=== PATIENT | female | born 1960 | race Caucasian/White ===

== ENCOUNTER 2017-06-21 15:38 | Inpatient (IN) ==
[2017-06-21 16:28] LABS: Basophils # 0.1 K/mcL (0.0-0.2); Basophils % 0.4 %; Eosinophils # 0.2 K/mcL (0.0-0.6); Eosinophils % 1.6 %; Hematocrit 45.6 % (35.3-44.9); Hemoglobin 15.1 g/dL (11.5-15.4); Immature Granulocytes % 0.4 % (0-4); Lymphocytes # 2.1 K/mcL (0.6-4.6); Lymphocytes % 18.8 %; Mean Corpuscular HGB Conc 33.1 g/dL (31.6-35.5); Mean Corpuscular Hemoglobin 29.8 pg (28.0-33.3); Mean Corpuscular Volume 90.1 fL (83.0-100.0); Mean Platelet Volume 9.6 fL (9.4-12.4); Monocytes # 0.7 K/mcL (0.0-1.3); Monocytes % 6.2 %; Neutrophils # 8.2 K/mcL (1.6-8.9); Platelet Count 260 K/mcL (140-400); Red Blood Count 5.06 M/mcL (3.82-4.97); Red Cell Distribution Width 13.3 % (11.5-14.5); Segmented Neutrophils % 72.6 %
[2017-06-21 16:41] LABS: Alanine Aminotransferase 11 Units/L (0-55); Albumin 3.4 g/dL (3.5-5.0); Albumin/Globulin Ratio 0.9 (1.1-2.2); Alkaline Phosphatase 89 Units/L (38-126); Amylase 115 Units/L (25-125); Aspartate Amino Transferase 15 Units/L (5-34); BUN/Creatinine Ratio 31 (6-26); Bilirubin,Direct 0.2 mg/dL (0.0-0.5); Bilirubin,Indirect 0.3 mg/dL (0.0-1.2); Bilirubin,Total 0.5 mg/dL (0.2-1.2); Blood Urea Nitrogen 25 mg/dL (7-20); Calcium 9.3 mg/dL (8.6-10.8); Carbon Dioxide 26 mEq/L (19-29); Chloride 107 mEq/L (98-109); Globulin 3.9 g/dL (2.4-3.5); Glucose 102 mg/dL (70-99); Lipase 13 Units/L (8-78); Osmolality,Calculated 293 (280-300); Potassium 4.4 mEq/L (3.5-4.5); Sodium 139 mEq/L (136-145); Total Protein 7.3 g/dL (6.0-8.3); eGFR For African Americans > 60 (> 60); eGFR For Non-African Americans > 60 (> 60)
[2017-06-21 18:24] LABS: Bilirubin,Urine Small (Negative); Blood,Urine Negative (Negative); Clarity,Urine Cloudy (Clear); Color,Urine Dark Yellow (Yellow); Glucose,Urine (UA) Normal (Normal); Ketones,Urine Negative (Negative); Leukocyte Esterase,Urine Moderate (Negative); Nitrite,Urine Positive (Negative); Protein,Urine Negative (Neg-Trace); Specific Gravity,Urine > 1.030 (1.010-1.025); Urobilinogen,Urine Normal (Normal)
[2017-06-21 18:26] LABS: Bacteria,Urine Many per hpf (None-Few); Hyaline Casts,Urine Few per lpf (None-Few); Squamous Epithelial Cell,Urine Many per lpf (None-Few); WBC,Urine 50-100 per hpf (0-3)
[2017-06-21] MEDS ORDERED: 0.9 % Sodium Chloride 1,000 ML IVC ONE (18:32)
[2017-06-21] MEDS ORDERED: Ondansetron 4 MG/2 ML VIAL IVP ONE (18:32)
[2017-06-21] MEDS ORDERED: *HR* Morphine 2 MG/ML SYRINGE IVP ONE (18:32)
[2017-06-21] MEDS ORDERED: Pantoprazole 40 MG VIAL IVP ONE (18:39)
--- NOTE | 2017-06-21 20:34 | Emergency Department Note ---
Disposition Clinical Impression: Colitis, Urinary tract infection Pancreatitis, chronic Qualifiers: Pancreatitis type: unspecified pancreatitis type Qualified Code(s): K86.1 - Other chronic pancreatitis Disposition: Admitted As Inpatient Condition: Fair Time of Disposition: 20:42 Abdominal Pain HPI - General Chief Complaint: ED Abdominal Pain Stated Complaint: ABD / back pain N/V Time Seen by Provider: 06/21/17 18:00 Source: patient - History of Present Illness HPI Narrative: Miss Ragland is a 57-year-old female with past medical history of chronic pancreatitis. She presents to the ED with a 2 day history of severe abdominal pain. She describes this pain as located in her left upper quadrant and radiating to her right upper quadrant and directly towards her back. She was recently hospitalized for a severe migraine. She was given Toradol. She went home after receiving a dose of Toradol and became nauseated which resulted in a few episodes of emesis. Yesterday she had severe diarrhea all throughout the day. Today she is in moderate to severe abdominal pain. She denies any hematochezia or melena. She denies any chest pain shortness of breath or headaches. She is not having any trouble urinating, she denies dysuria or hematuria. Pain Scale: 8 - Related Data Home Medications Medication Instructions Recorded Confirmed Dicyclomine [Bentyl] 40 mg PO QID 06/21/17 06/21/17 Duloxetine HCl [Cymbalta] 120 mg PO QAM 06/21/17 06/21/17 Gabapentin [Neurontin] 600 - 1,200 mg PO TID 06/21/17 06/21/17 Lipase/Protease/Amylase [Che Dr 4 each PO QID 06/21/17 06/21/17 24,000 Units Capsule] Meloxicam [Mobic] 7.5 mg PO DAILY 06/21/17 06/21/17 Promethazine [Phenergan] 25 mg PO Q8HR PRN 06/21/17 06/21/17 traZODone [TraZODone] 50 mg PO HS 06/21/17 06/21/17 Allergies Allergy/AdvReac Type Severity Reaction Status Date / Time No Known Allergies Allergy Verified 06/21/17 15:43 All systems ED: reviewed and negative except as stated. Review of Systems: As Per HPI Constitutional: Denies: fever, chills, weakness, weight change Cardiovascular: Denies: chest pain, palpitations, dyspnea on exertion, edema Respiratory: Denies: cough, dyspnea, wheezes, sputum production Gastrointestinal: Reports: abdominal pain, nausea, vomiting, diarrhea. Denies: hematemesis, melena, hematochezia Genitourinary: Denies: urgency, dysuria, hematuria Neurological: Denies: headache Abdominal Pain PMH - Past Medical History Medical history: Reports: other Reports: other (chronic pancreatitis) Female Surgical History: Reports: hysterectomy Psychiatric history: Reports: no psych history - Social History Smoking status: Current every day smoker Alcohol use: Reports: none Drug use: Reports: none Physical Exam - General Limitations: no limitations General appearance: alert, in no apparent distress - Head Head exam: atraumatic - Eye Eye exam: Present: normal appearance. Absent: scleral icterus - Respiratory Respiratory exam: Present: normal lung sounds bilaterally. Absent: respiratory distress, wheezes - Cardiovascular Cardiovascular exam: Present: regular rate, normal rhythm. Absent: systolic murmur, diastolic murmur, rubs, gallop - Abdominal Exam Abdominal exam: Present: soft. Absent: distention, guarding, rebound, rigidity Abdominal tenderness: Present: RUQ, LUQ, moderate - Back Exam Back exam: Present: CVA tenderness (L) - Neurological Exam Neurological exam: Present: alert, oriented X3 - Psychiatric Psychiatric exam: Present: normal affect, normal mood Course Course Narrative: Patient with past medical history of chronic pancreatitis presents with moderate severe abdominal pain. Patient has been sick with nausea vomiting and diarrhea the past 2 days. Will order basic labs and CT scan of the abdomen and pelvis. - Reevaluation(s) Reevaluation #1: Lipase is within normal limits as expected for acute on chronic pancreatitis CT scan shows evidence of mild colitis in the splenic flexure. Pancreas is atrophic with no evidence of acute inflammation. Patient's UTI indicates an asymptomatic pyuria. Reevaluation #2: Patient with intractable abdominal pain, acute on chronic pancreatitis versus colitis of the splenic flexure, and asymptomatic pyuria. Will admit to medicine. Vital Signs Temperature 98.0 F 06/21/17 15:40 Pulse Rate 120 06/21/17 15:40 Respiratory Rate 20 06/21/17 15:40 Blood Pressure 133/74 06/21/17 15:40 O2 Sat by Pulse Oximetry 93 06/21/17 15:40 Temperature 98.0 F 06/21/17 15:40 Pulse Rate 83 06/21/17 19:31 Respiratory Rate 18 06/21/17 19:31 Blood Pressure 126/71 06/21/17 19:31 O2 Sat by Pulse Oximetry 97 06/21/17 19:31 Oxygen Delivery Oxygen Delivery Room Air Abdominal Pain - Medical Records Medical records reviewed: Yes I reviewed the patient's medical records. - Lab Data Lab results reviewed: Yes I reviewed the patient's lab results. Result diagrams: 06/21/17 16:11 06/21/17 16:11 Lab Results 06/21/17 06/21/17 06/21/17 Range/Units 16:11 16:11 18:17 WBC 11.3 H (4.3-11.1) K/mcL RBC 5.06 H (3.82-4.97) M/mcL Hgb 15.1 (11.5-15.4) g/dL Hct 45.6 H (35.3-44.9) % MCV 90.1 (83.0-100.0) fL MCH 29.8 (28.0-33.3) pg MCHC 33.1 (31.6-35.5) g/dL RDW 13.3 (11.5-14.5) % Plt Count 260 (140-400) K/mcL MPV 9.6 (9.4-12.4) fL Immature Gran % 0.4 (0-4) % Seg Neutrophils % 72.6 % Lymphocytes % 18.8 % Monocytes % 6.2 % Eosinophils % 1.6 % Basophils % 0.4 % Neutrophils # 8.2 (1.6-8.9) K/mcL Lymphocytes # 2.1 (0.6-4.6) K/mcL Monocytes # 0.7 (0.0-1.3) K/mcL Eosinophils # 0.2 (0.0-0.6) K/mcL Basophils # 0.1 (0.0-0.2) K/mcL Sodium 139 (136-145) mEq/L Potassium 4.4 (3.5-4.5) mEq/L Chloride 107 (98-109) mEq/L Carbon Dioxide 26 (19-29) mEq/L BUN 25 H (7-20) mg/dL Creatinine 0.81 (0.57-1.11) mg/dL Est GFR ( Amer) > 60 (> 60) Est GFR (Non-Af Amer) > 60 (> 60) BUN/Creatinine Ratio 31 H (6-26) Glucose 102 H (70-99) mg/dL Calculated Osmolality 293 (280-300) Lactic Acid (0.5-2.2) mmol/L Calcium 9.3 (8.6-10.8) mg/dL Total Bilirubin 0.5 (0.2-1.2) mg/dL Direct Bilirubin 0.2 (0.0-0.5) mg/dL Indirect Bilirubin 0.3 (0.0-1.2) mg/dL AST 15 (5-34) Units/L ALT 11 (0-55) Units/L Alkaline Phosphatase 89 (38-126) Units/L Serum Total Protein 7.3 (6.0-8.3) g/dL Albumin 3.4 L (3.5-5.0) g/dL Globulin 3.9 H (2.4-3.5) g/dL Albumin/Globulin Ratio 0.9 L (1.1-2.2) Amylase 115 (25-125) Units/L Lipase 13 (8-78) Units/L Urine Color Dark Yellow (Yellow) Urine Clarity Cloudy A (Clear) Urine pH 6.0 (5.0-8.0) pH Units Ur Specific [place] > 1.030 H (1.010-1.025) Urine Protein Negative (Neg-Trace) mg/dL Urine Glucose (UA) Normal (Normal) mg/dL Urine Ketones Negative (Negative) mg/dL Urine Blood Negative (Negative) Urine Nitrite Positive A (Negative) Urine Bilirubin Small H (Negative) Urine Urobilinogen Normal (Normal) mg/dL Ur Leukocyte Esterase Moderate H (Negative) Urine Microscopic RBC 3-5 H (0-3) per hpf Urine Microscopic WBC 50-100 H (0-3) per hpf Ur Squamous Epith Cells Many H (None-Few) per lpf Urine Bacteria Many H (None-Few) per hpf Hyaline Casts Few (None-Few) per lpf Ur Culture Indicated? YES A (NO) 06/21/17 Range/Units 19:06 WBC (4.3-11.1) K/mcL RBC (3.82-4.97) M/mcL Hgb (11.5-15.4) g/dL Hct (35.3-44.9) % MCV (83.0-100.0) fL MCH (28.0-33.3) pg MCHC (31.6-35.5) g/dL RDW (11.5-14.5) % Plt Count (140-400) K/mcL MPV (9.4-12.4) fL Immature Gran % (0-4) % Seg Neutrophils % % Lymphocytes % % Monocytes % % Eosinophils % % Basophils % % Neutrophils # (1.6-8.9) K/mcL Lymphocytes # (0.6-4.6) K/mcL Monocytes # (0.0-1.3) K/mcL Eosinophils # (0.0-0.6) K/mcL Basophils # (0.0-0.2) K/mcL Sodium (136-145) mEq/L Potassium (3.5-4.5) mEq/L Chloride (98-109) mEq/L Carbon Dioxide (19-29) mEq/L BUN (7-20) mg/dL Creatinine (0.57-1.11) mg/dL Est GFR ( Amer) (> 60) Est GFR (Non-Af Amer) (> 60) BUN/Creatinine Ratio (6-26) Glucose (70-99) mg/dL Calculated Osmolality (280-300) Lactic Acid 0.5 (0.5-2.2) mmol/L Calcium (8.6-10.8) mg/dL Total Bilirubin (0.2-1.2) mg/dL Direct Bilirubin (0.0-0.5) mg/dL Indirect Bilirubin (0.0-1.2) mg/dL AST (5-34) Units/L ALT (0-55) Units/L Alkaline Phosphatase (38-126) Units/L Serum Total Protein (6.0-8.3) g/dL Albumin (3.5-5.0) g/dL Globulin (2.4-3.5) g/dL Albumin/Globulin Ratio (1.1-2.2) Amylase (25-125) Units/L Lipase (8-78) Units/L Urine Color (Yellow) Urine Clarity (Clear) Urine pH (5.0-8.0) pH Units Ur Specific [place] (1.010-1.025) Urine Protein (Neg-Trace) mg/dL Urine Glucose (UA) (Normal) mg/dL Urine Ketones (Negative) mg/dL Urine Blood (Negative) Urine Nitrite (Negative) Urine Bilirubin (Negative) Urine Urobilinogen (Normal) mg/dL Ur Leukocyte Esterase (Negative) Urine Microscopic RBC (0-3) per hpf Urine Microscopic WBC (0-3) per hpf Ur Squamous Epith Cells (None-Few) per lpf Urine Bacteria (None-Few) per hpf Hyaline Casts (None-Few) per lpf Ur Culture Indicated? (NO) - Radiology Data Radiology results reviewed: Yes I reviewed the patient's radiology results. Abdomen/Pelvis CT 06/21/17 18:33 IMPRESSION: Mild colitis in the splenic flexure. No abscess or free intraperitoneal air. Follow-up recommended to confirm resolution. Pancreatic atrophy. No evidence of acute pancreatitis. D/ : / 06/21/2017 19:42:21 Jamal Hudson MD / reyes Interpreting Provider: Jamal Hudson MD Attestation Statement - Attestation Attestation: Patient was seen with resident physician. I reviewed the history, physical, assessment and plan, and agree with the findings. I also personally evaluated this patient and had [id number] time with this patient. 49-year-old female presents to emergency department with abdominal pain. Patient states she has a history of chronic pancreatitis and her lipase is no longer show positive. But she has chronic abdominal discomfort and pain in his anterior stomach radiating to her back. She also has some diffuse abdominal tenderness. She denies fevers or chills. She has had more "upset stomach recently". No dysuria no nausea vomiting. No diarrhea. ED course vital signs are stable. ENT is unremarkable heart and lungs normal. Abdomen is soft there is diffuse tenderness especially in the midepigastric and left upper quadrant. Extremities unremarkable neurologically the patient is intact. ED course CT scan revealed colitis but no abscess or acute pancreatic injury that could be seen. Labs showed urinary tract infection, primarily. Patient was given several doses of pain medication but were unable to completely resolve her discomfort. Because of the history of chronic pancreatitis and not sure if her abdominal pain is from her colitis or the chronic pancreatitis be either way she will require a management and further workup and management as well as antibiotics for her urinary tract infection. Hemodynamically she remained stable on the emergency department we contacted the hospitalist service to arrange for hospitalization and inpatient management. I agree with the resident physician assessment and plan.
[2017-06-21] MEDS ORDERED: Naloxone 0.4 MG/ML INJ IVP PRN (20:56)
[2017-06-21] MEDS ORDERED: Ondansetron 4 MG/2 ML VIAL IVP PRN (20:56)
[2017-06-21] MEDS ORDERED: Acetaminophen 325 MG TABLET PO PRN (20:56)
[2017-06-21] MEDS ORDERED: *HR* Heparin 5,000 UNIT/ML VIAL SQ ONE (20:58)
--- NOTE | 2017-06-21 21:07 | Internal Med History&Physical ---
<Enzo Suarez - Last Filed: 06/21/17 21:02> Date of Encounter: 06/21/17 Time of Encounter: 21:02 Assessment and Plan (1) Colitis Current visit: Yes Status: Acute 49-year-old female with history of chronic pancreatitis presents with chief complaint of nausea or vomiting. Reports 1 day of nausea and vomiting that resolved on its own dose followed by 1 day of diarrhea which resolved as well and today patient has diffuse cramping abdominal pain. States she has previous flareups of panic pancreatitis that presented in similar fashion but are self-limiting and controlled with home medications of Bentyl and creatinine. However during this episode she was unable to find relief, reported poor oral intake and dehydration. CT scan shows inflammation of the splenic flexure of the colon otherwise within normal limits. Mildly elevated leukocytosis. Presented tachycardic and tachypneic which has resolved with IV fluids. Lipase and amylase within normal limits elevated urine specific gravity Etiology: viral vs bacterial, chronic pancreatitis Plan: Cipro and Flagyl Zofran and Phenergan for nausea control Pain control based on pain scale severity Clear liquid diet Advance diet as tolerated BMP and CMP in the morning (2) History of anxiety Current visit: Yes Status: Acute (3) Urinary tract infection Current visit: Yes Status: Acute Urinalysis shows high specific gravity, with positive nitrites, leukocyte esterase, elevated white blood cells and urine bacteria. Patient states that she has history of recurrent UTIs Currently denies dysuria, hematuria, increased urinary frequency, frothy urine Plan: Currently on ciprofloxacin. Await urine cultures before de-escalation. Qualifiers: Urinary tract infection type: acute cystitis Hematuria presence: without hematuria Qualified Code(s): N30.00 - Acute cystitis without hematuria (4) Pancreatitis, chronic Current visit: Yes Status: Acute Patient denies history of IV drug use, heavy alcohol use States she has cholecystitis in the past status post cholecystectomy Unclear etiology of chronic pancreatitis. Followed by GI doctor in [place] Plan: Continue Bentyl and creatinine. Qualifiers: Pancreatitis type: unspecified pancreatitis type Qualified Code(s): K86.1 - Other chronic pancreatitis (5) DVT prophylaxis Current visit: Yes Status: Acute Heparin subcutaneous (6) Hx of hepatitis C Current visit: Yes Status: Acute Reports history of hepatitis C She does not have stigmata of cirrhosis on exam Denies history of IV drug use, or sexual contact with hep C positive person. Reports during her cholecystectomy she had a splenic laceration and required multiple blood transfusions and thereafter was found to be hep C positive. Patient said she underwent treatment with resolution of hepatitis C CT abdomen does not show any signs of cirrhosis, no evidence of acetic fluid. Liver enzymes within normal limits. Plan: stable. no intervention necessary. Follow up outpatient with GI doc. Internal Medicine - H&P: HPI Chief complaint: Nausea vomiting Admitted From: Home Plans for Post Hospital Care: Home History of present illness: Ms. Ragland is a 57 year old female chief complaint of nausea vomiting. 2 days ago patient had acute onset of nausea and vomiting that lasted for 8 hours. States she vomited gastric content, but denied hemoptysis. That day patient had eggrolls for breakfast and states that her family had the same type of breakfast and did not have any symptoms. After resolution of vomiting the next day patient had acute onset of watery diarrhea. States diarrhea was frothy , with mucus, without blood. Patient's diarrhea resolved on its own and her last bowel movement today was a formed stool. However today patient started having diffuse cramping abdominal pain with intense nausea. Patient denies any vomiting today. Her pain radiated to the back and did not improve with anything. Pain worsens with oral intake and movement, and breathing. Patient states she has a history of chronic pancreatitis unknown etiology. She takes Bentyl and Creon daily which she says usually helps control the symptoms and also resolve the symptoms as she has had episodes of this type of presentation before. However, this time She was unable to bear the abdominal pain and became dehydrated and reports poor oral intake. She denies sick contacts, recent travel, fevers, chills, chest pain, palpitations, shortness of breath. Past Med Surg Social Fam HX - Past Medical History Medical history: other (Chronic pancreatitis) Psychiatric history: anxiety - Past Surgical History Surgical History: appendectomy, cholecystectomy, hysterectomy - Social History Smoking Status: Current every day smoker Smokeless Tobacco Status: No Alcohol use: none Drug use: none Current living situation: Home - Independent Activity Level: Independent ambulation Recent Out of Country Travel Within the Last 8 Weeks: No Exposure or Possible Exposure to Illness During Travel: No - Family History Father History Unknown: Yes Internal Medicine - H&P: Meds Dicyclomine [Bentyl] 40 mg PO QID 06/21/17 [History] Duloxetine HCl [Cymbalta] 120 mg PO QAM 06/21/17 [History] Gabapentin [Neurontin] 600 - 1,200 mg PO TID 06/21/17 [History] Lipase/Protease/Amylase [Creon Dr 24,000 Units Capsule] 4 each PO QID 06/21/17 [ History] Meloxicam [Mobic] 7.5 mg PO DAILY 06/21/17 [History] Promethazine [Phenergan] 25 mg PO Q8HR PRN 06/21/17 [History] traZODone [TraZODone] 50 mg PO HS 06/21/17 [History] Allergies No Known Allergies Allergy (Verified 06/21/17 15:43) All Systems PM: A 10-system review of systems was performed and is negative for pertinent findings except as documented above in the HPI. Review of systems: Constitutional: Denies fever, chills HEENT: Denies headache, vision changes, sore throat, rhinorrhea. Reports chronic neck pain Heart: Denies chest pain palpitations Lungs: Denies shortness of breath cough Abdomen: Reports cramping abdominal pain, nausea, vomiting, diarrhea Back: Reports low back pain Kidney: Denies dysuria, hematuria, increased urinary frequency Extremities: Denies swelling, pain Neuro: Denies numbness, and tingling - Constitutional Vitals: Temp Pulse Resp BP Pulse Ox 98.0 F 68 16 124/54 93 06/21/17 15:40 06/21/17 20:59 06/21/17 20:59 06/21/17 20:59 06/21/17 20:59 - Other Additional findings: General: Alert and oriented to place time and situation. Mild distressed HEENT: Head atraumatic, normocephalic, EOMI, PERRLA, mild neck pain with palpation, absent Lymphadenopathy, dry mucous membranes Heart: Regular rate and rhythm with no murmur Lungs: Clear to auscultation bilaterally, diminished Abdomen: Soft with tenderness diffusely with deep palpation, positive bowel sounds, absent organomegaly, mass Extremities: Absent pedal edema, range of motion intact Neuro: Cranial nerves II through XII intact, sensation equal bilaterally, strength upper and lower extremity 5/5, alert oriented 3 Skin: Warm and dry Vascular: Pedal and radial pulses 2 out of 4 Internal Med - H&P Results - Labs CBC & Chem 7: 06/21/17 16:11 06/21/17 16:11 <Guadalupe Tong Miracle - Last Filed: 06/21/17 21:49> Date of Encounter: 06/21/17 Internal Medicine - H&P: HPI History of present illness: Ms. Ragland is a 57 year old female All Systems PM: A 10-system review of systems was performed and is negative for pertinent findings except as documented above in the HPI. - Constitutional Vitals: Temp Pulse Resp BP Pulse Ox 98.0 F 68 16 124/54 93 06/21/17 15:40 06/21/17 20:59 06/21/17 21:09 06/21/17 21:09 06/21/17 20:59 Internal Med - H&P Results - Labs CBC & Chem 7: 06/21/17 16:11 06/21/17 16:11 - Attending Attestation I examined this patient and my medical decision-making was reviewed with the Resident Physician. I agree with the documented findings, disposition and treatment plan as described except to the extent set forth below. 57-year-old female with a history of chronic pancreatitis who presents with three-day history of GI symptoms initially with nausea vomiting of scant bilious emesis. Developed subsequent nonbloody diarrhea frequency of 6-7 times daily for the last 2 days. Associated abdominal discomfort and cramps. In the ED CT scan noted thickening of colon near the splenic flexure suggestive of acute colitis. Urinalysis demonstrated pyuria and receive empiric treatment for UTI in the ED which she has a history of. ROS 14 point review of systems reviewed as best as possible given presentation. Pertinent positive or negative as per HPI or otherwise reviewed as negative General - AAO x 3 Psych - Appropriate affect/speech. No agitation Eyes - ANNE. Eye lids intact. No scleral icterus Heart - Sinus. RRR. S1 and S2 present. No added HS/murmurs appreciated. No elevated JVD appreciated. No calf swellings/erythema Lung - Adequate air entry b/l, No crackes/wheezes appreciated GI - epigastric, periumbilical abdominal discomfort, mild guarding, no rigidity. No hepatosplenomegaly/ascities. BS+ - No CVA/suprapubic tenderness or palpable bladder distension Skin - Intact. No rash/petechiae/ecchymosis. Warm extremities MSK - Joints with normal ROM. No joint swellings Acute colitis - NPO, IV fluid, cipro/flagyl - send stool studies Pyuria-asymptomatic - urine cx pend - antibiotics above will treat infection if present Chronic pancreatitis Anxiety
[2017-06-21] MEDS ORDERED: *HR* Dextrose 50 % in Water (Syg) 50 ML SYRINGE IVP PRN (21:24)
[2017-06-21] MEDS ORDERED: D5% in Water 1,000 ML IVC PRN (21:24)
[2017-06-21] MEDS ORDERED: Dextrose Gel 15 GM PO PRN ×2 (21:24)
[2017-06-21] MEDS: Gabapentin 300 MG CAPSULE PO SCH (21:52)
[2017-06-21] MEDS: traZODone 50 MG TABLET PO SCH (21:52)
[2017-06-21] MEDS: *HR* Morphine 2 MG/ML SYRINGE IVP PRN (21:52)
[2017-06-21] MEDS: Nicotine 21 MG PATCH.TD24 TD SCH (21:52)
[2017-06-21] MEDS: 0.9 % Sodium Chloride 1,000 ML IVC SCH (21:52)
[2017-06-21] MEDS: LIPASE PO SCH (21:53)
[2017-06-21] MEDS: AMYLASE PO SCH (21:53)
[2017-06-21] MEDS: PROTEASE PO SCH (21:53)
[2017-06-22] MEDS: *HR* HYDROcodone/Acet 5/325 mg TABLET PO PRN ×3 (00:30→23:07)
[2017-06-22] MEDS: MetroNIDAZOLE 500 MG/100 ML 500 MG/100 ML BAG IVPB SCH ×4 (00:30→23:07)
[2017-06-22] MEDS: *HR* Morphine 2 MG/ML SYRINGE IVP PRN ×3 (02:20→11:59)
[2017-06-22] MEDS: Famotidine 20 MG/2 ML VIAL IVP SCH ×2 (05:34→17:07)
[2017-06-22 05:54] LABS: BUN/Creatinine Ratio 29 (6-26); Blood Urea Nitrogen 21 mg/dL (7-20); Calcium 8.5 mg/dL (8.6-10.8); Carbon Dioxide 27 mEq/L (19-29); Chloride 109 mEq/L (98-109); Glucose 86 mg/dL (70-99); Osmolality,Calculated 296 (280-300); Potassium 3.9 mEq/L (3.5-4.5); Sodium 142 mEq/L (136-145); eGFR For African Americans > 60 (> 60); eGFR For Non-African Americans > 60 (> 60)
[2017-06-22 05:57] LABS: Basophils # 0.1 K/mcL (0.0-0.2); Basophils % 0.6 %; Eosinophils # 0.2 K/mcL (0.0-0.6); Eosinophils % 2.5 %; Hematocrit 40.7 % (35.3-44.9); Immature Granulocytes % 0.6 % (0-4); Lymphocytes # 2.6 K/mcL (0.6-4.6); Lymphocytes % 31.8 %; Mean Corpuscular Hemoglobin 28.6 pg (28.0-33.3); Mean Corpuscular Volume 92.5 fL (83.0-100.0); Mean Platelet Volume 9.4 fL (9.4-12.4); Monocytes # 0.6 K/mcL (0.0-1.3); Monocytes % 7.1 %; Neutrophils # 4.7 K/mcL (1.6-8.9); Platelet Count 219 K/mcL (140-400); Red Cell Distribution Width 13.1 % (11.5-14.5); Segmented Neutrophils % 57.4 %
[2017-06-22 05:59] LABS: Hemoglobin 12.6 g/dL (11.5-15.4)
[2017-06-22] MEDS ORDERED: Insulin LISPRO 300 UNITS/3 ML VIAL SQ SCH ×2 (07:30→21:00)
[2017-06-22] MEDS: Gabapentin 300 MG CAPSULE PO SCH ×3 (08:15→20:11)
[2017-06-22] MEDS: PROTEASE PO SCH ×4 (08:42→20:12)
[2017-06-22] MEDS: AMYLASE PO SCH ×4 (08:42→20:12)
[2017-06-22] MEDS: Nicotine 21 MG PATCH.TD24 TD SCH (08:42)
[2017-06-22] MEDS: LIPASE PO SCH ×4 (08:42→20:12)
[2017-06-22] MEDS: 0.9 % Sodium Chloride 1,000 ML IVC SCH (11:57)
--- NOTE | 2017-06-22 15:42 | Internal Med Progress Note ---
Date of Encounter: 06/22/17 Time of Encounter: 15:41 - Assessment and plan (1) Colitis Current Visit: Yes Status: Acute Assessment and plan: Clinically getting better. Continue IV antibiotics. As pain is improving, we will start patient on clear liquids. No diarrhea. We will cancel stool studies for C. difficile. Monitor vital signs closely. Continue IV hydration. (2) Pancreatitis, chronic Current Visit: Yes Status: Acute Assessment and plan: Continue Creon Qualifiers: Pancreatitis type: unspecified pancreatitis type Qualified Code(s): K86.1 - Other chronic pancreatitis (3) Urinary tract infection Current Visit: Yes Status: Acute Assessment and plan: Urine culture positive for gram-negative rods. Patient is receiving IV antibiotics Qualifiers: Urinary tract infection type: acute cystitis Hematuria presence: without hematuria Qualified Code(s): N30.00 - Acute cystitis without hematuria (4) DVT prophylaxis Current Visit: Yes Status: Acute Assessment and plan: With subcutaneous heparin (5) History of anxiety Current Visit: Yes Status: Chronic Assessment and plan: Continue Cymbalta (6) Hx of hepatitis C Current Visit: Yes Status: Chronic Assessment and plan: Continue follow-up outpatient with gastroenterology. - Subjective Interval history: Patient feeling better. Feels hungry. Abdominal pain is improving. No nausea or vomiting. No diarrhea - Constitutional Vitals: Temp Pulse Resp BP Pulse Ox 97.2 F L 78 16 104/51 92 06/22/17 14:52 06/22/17 14:52 06/22/17 14:52 06/22/17 14:52 06/22/17 14:52 General appearance: Present: cooperative, A&O X 3, answers questions appropriately - Respiratory Respiratory exam: Present: CTAB. Absent: accessory muscle use, rales, rhonchi, wheezes - Cardiovascular Cardiovascular exam: Present: RRR, +S1, +S2. Absent: diastolic murmur, gallop, rubs, systolic murmur - GI/Abdominal GI/Abdominal exam: Present: normal bowel sounds, soft, tenderness (left upper quadrant), no peritoneal signs. Absent: distended Internal Medicine: Result - Labs CBC & Chem 7: 06/22/17 05:25 06/22/17 05:25 Labs: Short CBC 06/22/17 Range/Units 05:25 WBC 8.1 (4.3-11.1) K/mcL Hgb 12.6 D (11.5-15.4) g/dL Hct 40.7 (35.3-44.9) % Plt Count 219 (140-400) K/mcL Neutrophils # 4.7 (1.6-8.9) K/mcL BMP 06/22/17 05:25 Sodium 142 Potassium 3.9 Chloride 109 Carbon Dioxide 27 BUN 21 H Creatinine 0.73 Glucose 86 Calcium 8.5 L Consult Discharge Plan - Plan Referrals: NONE,PCP [Primary Care Provider] -
[2017-06-22] MEDS: traZODone 50 MG TABLET PO SCH (20:12)
[2017-06-23] MEDS: *HR* HYDROcodone/Acet 5/325 mg TABLET PO PRN ×2 (04:28→09:59)
[2017-06-23] MEDS: Famotidine 20 MG/2 ML VIAL IVP SCH (04:28)
[2017-06-23 07:37] VITALS: BP 113/71
[2017-06-23] MEDS: Gabapentin 300 MG CAPSULE PO SCH (08:54)
[2017-06-23] MEDS: LIPASE PO SCH (08:55)
[2017-06-23] MEDS: AMYLASE PO SCH (08:55)
[2017-06-23] MEDS: Nicotine 21 MG PATCH.TD24 TD SCH (08:55)
[2017-06-23] MEDS: PROTEASE PO SCH (08:55)
[2017-06-23] MEDS: MetroNIDAZOLE 500 MG/100 ML 500 MG/100 ML BAG IVPB SCH (08:57)
--- NOTE | 2017-06-23 10:30 | Discharge Summary ---
Date of Encounter: 06/23/17 Time of Encounter: 10:27 - Discharge Diagnosis (1) Colitis Priority: Primary Status: Acute (2) Pancreatitis, chronic Priority: Secondary Status: Acute Qualifiers: Pancreatitis type: unspecified pancreatitis type Qualified Code(s): K86.1 - Other chronic pancreatitis (3) Urinary tract infection Priority: Secondary Status: Acute Qualifiers: Urinary tract infection type: acute cystitis Hematuria presence: without hematuria Qualified Code(s): N30.00 - Acute cystitis without hematuria (4) DVT prophylaxis Priority: Secondary Status: Acute (5) History of anxiety Priority: Secondary Status: Chronic (6) Hx of hepatitis C Priority: Secondary Status: Chronic - Discharge Medications Prescriptions: HYDROcodone/Acet 5/325 mg [[place] 5-325 mg] 1 tab PO Q4HR PRN #14 tab PRN Reason: Moderate Pain (4-6) Ciprofloxacin [Cipro] 500 mg PO BID #20 tablet metroNIDAZOLE [Flagyl] 500 mg PO TID #30 tablet Home Medications: Dicyclomine [Bentyl] 40 mg PO QID 06/21/17 [History] Duloxetine HCl [Cymbalta] 120 mg PO QAM 06/21/17 [History] Gabapentin [Neurontin] 600 - 1,200 mg PO TID 06/21/17 [History] Lipase/Protease/Amylase [Creon Dr 24,000 Units Capsule] 4 each PO QID 06/21/17 [ History] Meloxicam [Mobic] 7.5 mg PO DAILY 06/21/17 [History] Promethazine [Phenergan] 25 mg PO Q8HR PRN 06/21/17 [History] traZODone [TraZODone] 50 mg PO HS 06/21/17 [History] Ciprofloxacin [Cipro] 500 mg PO BID #20 tablet 06/23/17 [Rx] HYDROcodone/Acet 5/325 mg [[place] 5-325 mg] 1 tab PO Q4HR PRN #14 tab 06/23/17 [ Rx] metroNIDAZOLE [Flagyl] 500 mg PO TID #30 tablet 06/23/17 [Rx] Allergies/Adverse Reactions: Allergies No Known Allergies Allergy (Verified 06/21/17 15:43) Date of admission: 06/21/17 22:45 Primary care physician: PCP NONE Discharging clinician: Eulogio Grove Anticipated date of discharge: 06/23/17 - Patient Status Disposition: Home, Self-Care Condition: Good Functional capacity at discharge: independent ambulation Overall status at discharge: patient is progressing back to baseline - Discharge Instructions Instructions: Pancreatitis (DC), Urinary Tract Infection in Women (DC) Follow Up With: NONE,PCP [Primary Care Provider] - (in 1-2 weeks) - Diet and Activity Activity: increase activity as tolerated Diet: low fat, low cholesterol, low salt diet Hospital course: Ms. Ragland is a 57 year old female patient with a history of chronic pancreatitis , hepatitis C was admitted here with acute colitis involving the splenic flexure. She was treated with IV antibiotics, IV fluids and kept nothing by mouth initially. Her symptoms improved by the next day and she was truly started on clear liquid diet. She has been tolerating diet well since then and her pain is controlled. She is stable to be discharged home and will follow up with her primary care provider for further management. She will complete antibiotic therapy with Cipro and Flagyl. She also had urine culture positive for gram-negative rods. Will follow up on final culture results and make any changes to antibiotic therapy as needed. - Time Spent with Patient Total time spent providing and/or coordinating discharge services: Less than 30 minutes (25 min) - Constitutional Vitals: Temp Pulse Resp BP Pulse Ox 97.8 F 87 16 113/71 93 06/23/17 07:34 06/23/17 07:34 06/23/17 07:34 06/23/17 07:34 06/23/17 07:34 General appearance: Present: cooperative, A&O X 3, answers questions appropriately - Respiratory Respiratory exam: Present: CTAB. Absent: accessory muscle use, rales, rhonchi, wheezes - Cardiovascular Cardiovascular exam: Present: RRR, +S1, +S2. Absent: diastolic murmur, gallop, rubs, systolic murmur - GI/Abdominal GI/Abdominal exam: Present: normal bowel sounds, soft, no peritoneal signs. Absent: distended, tenderness - Extremities Exam Extremities exam: Present: warm, radial pulses palpable and symmetrical. Absent : calf tenderness, cyanotic, pedal edema - Neurological Exam Neurological exam: Present: CN II-XII intact, oriented X3, no focal deficits, strengths equal and symetr throughout. Absent: facial droop, speech deficit - Skin Skin exam: Present: dry, intact
--- NOTE | 2017-06-24 13:09 | Electrocardiograph Report ---
[address] [address] Test Date: 2017-06-23 Pat Name: Pricilla Ragland Department: 115 Room: 3A45 Gender: F Website Project Manager: MOISES : 1960 Requested By: Eulogio Grove Order Number: [id number] Reading MD: Romy Aceves Measurements Intervals [place] Rate: 78 P: 66 PA: 174 QRS: 47 QRSD: 102 T: 36 QT: 380 QTc: 414 Interpretive Statements SINUS RHYTHM Electronically Signed On 06-24-2017 13:08:18 EDT by Romy Aceves
--- NOTE | 2017-06-24 13:10 | Electrocardiograph Report ---
[address] [place], [place] [address] Test Date: 2017-06-23 Pat Name: Pricilla Rgaland Department: 115 Room: 3A45 Gender: Investment Analyst: MOISES : 1960 Requested By: Eulogio Grove Order Number: [id number] Reading MD: Romy Aceves Measurements Intervals [place] Rate: 77 P: 69 WA: 188 QRS: 54 QRSD: 97 T: 39 QT: 382 QTc: 414 Interpretive Statements SINUS RHYTHM Electronically Signed On 06-24-2017 13:08:34 EDT by Romy Aceves
== END 2017-06-23 11:35 | disposition home or self-care (01) | DRG 392 ==
LOC: 3ANU 15:38 → EMEROO 15:38 → 3ANU 21:18
PROVIDERS: ADMIT Internal Medicine; ATTEND Internal Medicine